=== PATIENT | male | born 1940 | race Caucasian/White ===

== ENCOUNTER 2020-02-10 15:43 | Inpatient (IN) ==
[2020-02-10] MEDS ORDERED: DILTIAZEM 25 MG/5 ML VIAL IV ONE ×2 (16:04→17:13)
--- NOTE | 2020-02-10 16:06 | Emergency Department Note ---
Arrhythmia/Palpitations HPI - General Chief Complaint: Arrhythmia/Palpitations Stated Complaint: DONN Mcadams, Time Seen by Provider: 02/10/20 15:55 Source: patient Mode of arrival: ambulatory Limitations: no limitations - History of Present Illness HPI Narrative: This patient has been short of breath for couple weeks and today was found to be in atrial fib RVR in his primary care doctor's office. He was sent over to the emergency room. He also has had some dependent edema recently which is improved by morning. No chest pain. Has never had atrial fib before. - Related Data Previous Rx's Medication Instructions Recorded aspirin 81 mg tablet,delayed 81 mg PO QDAY #90 tab 09/17/17 release cholecalciferol (vitamin D3) 25 1,000 unit PO QDAY #90 cap 06/10/18 mcg (1,000 unit) capsule diclofenac sodium 1 % topical gel 4 g TOPICAL QID #100 g 07/19/19 losartan 50 mg tablet 50 mg PO QDAY #90 tab 09/29/19 tadalafil 5 mg tablet 5 mg PO QDAY #90 tab 11/08/19 simvastatin 20 mg tablet 20 mg PO QPM #90 tab 01/09/20 lansoprazole 30 mg capsule,delayed 30 mg PO QDAY #90 cap 01/10/20 release amlodipine 5 mg tablet 5 mg PO QDAY #90 tab 02/01/20 famotidine 40 mg tablet 40 mg PO QDAY #90 tab 02/02/20 metformin 500 mg tablet 500 mg PO BID #180 tab 02/07/20 tamsulosin 0.4 mg capsule 0.4 mg PO QDAY #90 cap 02/09/20 Allergies Allergy/AdvReac Type Severity Reaction Status Date / Time No Known Drug Allergies Allergy Verified 02/10/20 14:39 Review of Systems All systems ED: reviewed and negative except as stated. Past Medical History - Past Medical History [facility] Narrative: Medical History (Last Updated 03/10/19 @ 09:40 by Roopa Baker CMA) Obesity (BMI 30.0-34.9) (Chronic) Epistaxis, recurrent (Chronic) Hypertension, essential (Chronic) Hyperlipemia (Chronic) Asthma (Chronic) Erectile dysfunction (Chronic 04/09/15) Gastroesophageal reflux (Chronic) Sweeney's esophagus (Chronic) Osteoarthritis (Chronic) History of colon polyps (Chronic) Benign localized hyperplasia of prostate without urinary obstruction (Chronic) Exophthalmos (Chronic) Diverticulosis of colon (Chronic) Tinnitus (Chronic) Kim's palsy (Resolved) Colon polyps (Resolved 02/07/15) Encounter for removal of nasal pack (Resolved) Epistaxis (Resolved) Finger pain (Resolved 04/09/15) Fracture, scapula closed (Resolved) Diabetes mellitus, type II (Inactive) Past Surgical History (Last Updated 02/20/19 @ 08:31 by Misael Forrest DO) History of hip replacement (Acute) History of hip surgery (Acute) History of inguinal hernia repair (Acute) History of orchiectomy (Acute) History of repair of left rotator cuff (Acute) S/P carpal tunnel release (Acute) Family History Mother Alzheimer's disease Father Malignant neoplasm of colon Disorder of pancreas Unknown Asthma Parkinson's Disease Medical history: Reports: CAD (coronary artery disease), DM, GERD, hyperlipid emia, hypertension, myocardial infarction (old silent small), obesity. Denies: CVA, TIA Surgical history ED: Reports: hip replacement, orthopedic, other (rotator cuff, carpal tunnel) - Social History smoking status: Never smoker Alcohol use: Reports: Occasionally (To beer 2 or 3 times a week) Drug use: Reports: none. Denies: marijuana Physical Exam Limitations: no limitations General appearance: alert Head: atraumatic Eye: Present: normal appearance ENT: Present: normal exam Neck: Present: normal inspection Chest: Present: normal inspection Respiratory: Present: normal lung sounds bilaterally Cardiovascular: Present: tachycardia, irregular rhythm, normal heart sounds Abdominal: Present: soft. Absent: distention, tenderness Extremities: Present: pedal edema, pretibial edema Neurological: Present: alert Psychiatric: Present: normal affect Skin: Present: warm, dry Course Vital Signs Temperature 97.8 F 02/10/20 15:44 Pulse Rate 145 H 02/10/20 15:44 Respiratory Rate 16 02/10/20 15:44 Blood Pressure 150/99 02/10/20 15:44 Pulse Oximetry (%) 99 02/10/20 15:44 Temperature 97.8 F 02/10/20 15:44 Pulse Rate 96 H 02/10/20 20:58 Respiratory Rate 23 H 02/10/20 20:58 Blood Pressure 125/91 02/10/20 20:31 Pulse Oximetry (%) 94 02/10/20 20:58 Arrhythmia/Palpitations - [facility] Narrative Medical decision making narrative: EKG showed atrial fib RVR rate of about 1 40-1 45. He was treated with diltiazem and Lopressor a feeling of his heart rate down close to 100. Chest x- ray shows evidence of heart failure and his BNP is elevated. I discussed the case with the hospitalist service and he will be admitted to the hospital. - Lab Data Lab results reviewed: Yes I reviewed the patient's lab results. Result diagrams: 02/10/20 16:07 02/10/20 16:07 Lab Results 02/10/20 02/10/20 02/10/20 Range/Units 16:07 16:07 16:07 WBC 15.3 H (4.50-11.00) K/mcL RBC 4.31 L (4.63-6.08) M/mcL Hgb 11.8 L (13.7-17.5) g/dL Hct 36.3 L (40.1-51.0) % MCV 84.2 (80.0-100.0) fL MCH 27.4 (26.0-34.0) pg MCHC 32.5 (31.0-36.0) g/dL RDW 14.6 H (11.5-14.5) % Plt Count 332 (140-440) K/mcL MPV 10.2 (7.4-10.4) fL Gran % 76.2 (38.0-78.0) % Lymph % (Auto) 6.7 L (15.5-49.0) % Jack % (Auto) 15.9 H (1.0-12.0) % Eos % (Auto) 0.7 (0.0-7.0) % Baso % (Auto) 0.5 (0.0-2.0) % Gran # 11.68 H (1.80-8.00) K/mcL Lymph # (Auto) 1.03 L (1.50-4.80) K/mcL Jack # (Auto) 2.43 H (0.10-0.90) K/mcL Eos # (Auto) 0.10 (0.00-0.70) K/mcL Baso # (Auto) 0.07 (0.00-0.30) K/mcL Sodium 132 L (133-145) mmol/L Potassium 3.9 (3.3-5.1) mmol/L Chloride 97 (96-108) mmol/L Carbon Dioxide 24 (22-30) mmol/L Anion Gap 11.0 (8-16) BUN 13 (8-23) mg/dl Creatinine 1.0 (0.7-1.2) mg/dl GFR Calculation 72 Glucose 106 H (70-105) mg/dL Calcium 9.3 (8.6-10.4) mg/dl Total Bilirubin 1.5 H (0.0-1.0) mg/dL AST 22 (0-37) U/l ALT 25 (0-40) U/l Alkaline Phosphatase 154 H (39-117) U/L Troponin T < 0.01 (0-0.03) ng/ml NT-Pro-B Natriuret Pep 2089.0 H (0-450) pg/ml Total Protein 7.0 (5.9-8.4) gm/dL Albumin 3.6 (3.2-5.2) gm/dL Globulin 3.4 (2.2-3.7) gm/dL Albumin/Globulin Ratio 1.1 (1.0-2.3) - Radiology Data Radiology results reviewed: Yes I reviewed the patient's radiology results. Disposition Pt seen by BEHAVIORAL HEALTH ASSISTANT/PA only: No Clinical Impression: Atrial fibrillation with RVR, Congestive heart failure Disposition: Xfer As Inpt ([facility]) Condition: Good Referrals: Hammad Knowles MD [Primary Care Provider] - Time of Disposition: 21:00
[2020-02-10] MEDS ORDERED: DILTIAZEM 125 MG in DEXTROSE 5% IN WATER 100 ML IV SCH ×2 (16:15→20:37)
--- NOTE | 2020-02-10 16:37 | XRay Report ---
INDICATION: sob TECHNIQUE: AP portable semiupright chest x-ray COMPARISON: None FINDINGS: Lungs:Lungs are negative. No focal pulmonary parenchymal infiltrate or mass Heart, vascular:Marked cardiomegaly. This is increased since 08/10/2017. Pulmonary vascularity is mildly prominent. There is peribronchial thickening and probable interstitial edema. Appearance is consistent with mild congestive heart failure. Mediastinum, patrice:No mediastinal widening. No hilar mass Pleura:No pleural fluid. No pleural-based mass or calcification Skeletal:Negative. IMPRESSION: 1. Marked cardiomegaly, increased since 08/10/2017 2. Probable mild interstitial edema consistent with congestive heart failure 3. No focal pulmonary parenchymal consolidation Interpreted and Authenticated by: Daryl Oro 02/10/20
[2020-02-10 16:42] LABS: Basophils # (Auto) 0.07 K/mcL (0.00-0.30); Basophils % (Auto) 0.5 % (0.0-2.0); Eosinophils % (Auto) 0.7 % (0.0-7.0); Granulocytes % (Auto) 76.2 % (38.0-78.0); Hematocrit 36.3 % (40.1-51.0); Hemoglobin 11.8 g/dL (13.7-17.5); Lymphocytes # (Auto) 1.03 K/mcL (1.50-4.80); Lymphocytes % (Auto) 6.7 % (15.5-49.0); Mean Cell Volume 84.2 fL (80.0-100.0); Mean Corpuscular HGB Conc 32.5 g/dL (31.0-36.0); Mean Platelet Volume 10.2 fL (7.4-10.4); Monocytes # (Auto) 2.43 K/mcL (0.10-0.90); Monocytes % (Auto) 15.9 % (1.0-12.0); Platelet Count 332 K/mcL (140-440); RBC 4.31 M/mcL (4.63-6.08); Red Cell Distribution Width 14.6 % (11.5-14.5); WBC 15.3 K/mcL (4.50-11.00)
[2020-02-10 17:02] LABS: ALT/SGPT 25 U/l (0-40); AST/SGOT 22 U/l (0-37); Albumin 3.6 gm/dL (3.2-5.2); Albumin/Globulin Ratio 1.1 (1.0-2.3); Alkaline Phosphatase 154 U/L (39-117); Bilirubin,Total 1.5 mg/dL (0.0-1.0); Blood Urea Nitrogen 13 mg/dl (8-23); Calcium 9.3 mg/dl (8.6-10.4); Carbon Dioxide 24 mmol/L (22-30); Chloride 97 mmol/L (96-108); Globulin 3.4 gm/dL (2.2-3.7); Glomerular Filtration Rate 72; Glucose 106 mg/dL (70-105)
[2020-02-10] MEDS ORDERED: FUROSEMIDE 40 MG/4 ML VIAL IV ONE (17:27)
[2020-02-10] MEDS ORDERED: METOPROLOL TARTRATE 5 MG/5 ML VIAL IV ONE (18:10)
[2020-02-10] MEDS ORDERED: DEXTROSE 31 GM ORAL.SUSP PO PRN ×2 (20:22→21:25)
[2020-02-10] MEDS ORDERED: DEXTROSE 50% 50 ML VIAL IV PRN ×2 (20:22→21:25)
[2020-02-10] MEDS ORDERED: LACTULOSE 20 GM/30 ML ORAL.SOL PO PRN ×2 (20:22→21:25)
--- NOTE | 2020-02-10 20:50 | Internal Med History&Physical ---
Medical - H&P: [facility] Patient information: Note initiated : 02/10/20 at 8:43 pm Service Date, if different from initiated Date: [] Patient: Emeetrio Medeiros 79 y/o M admitted on for DONN Mcadams,. Chief Complaint: [Atrial fibrillation] History of present illness: Mr. Medeiros is a 79 year old M with a history of high blood pressure and Sweeney's esophagus who was sent to the ER primary care physician due to atrial fibrillation with RVR. Patient states that he has been having shortness of breath associated with mild dry cough over the past 2 months. He went to his PCPs office today over there he was found to have atrial fibrillation with RVR. In the ER, he was also found to have elevation of BNP. She was given Lasix 40 mg and diltiazem. When I saw this patient in the ER, he felt much better. Denied headache, dizziness, chest pain, nausea, vomiting, abdominal pain, or dysuria. Denies history of diabetes, CHF atrial fibrillation. Review of systems: Positive for shortness of breath and cough all other systems were reviewed and are negative. Medical - H&P: [facility] Medical history: High blood pressure and GERD Family history: reviewed and not pertinent (Father colon cancer; mother dementia) Smoking status: Never smoker Have you smoked in the last 12 months: No Drug use: none Alcohol use: none Medical - H&P: Meds Home Medications Medication Instructions Recorded Confirmed Type aspirin 81 mg tablet,delayed 81 mg PO QDAY #90 tab 09/17/17 02/10/20 Rx release cholecalciferol (vitamin D3) 25 1,000 unit PO QDAY #90 cap 06/10/18 02/10/20 Rx mcg (1,000 unit) capsule diclofenac sodium 1 % topical gel 4 g TOPICAL QID #100 g 07/19/19 02/10/20 Rx losartan 50 mg tablet 50 mg PO QDAY #90 tab 09/29/19 02/10/20 Rx tadalafil 5 mg tablet 5 mg PO QDAY #90 tab 11/08/19 02/10/20 Rx simvastatin 20 mg tablet 20 mg PO QPM #90 tab 01/09/20 02/10/20 Rx lansoprazole 30 mg capsule,delayed 30 mg PO QDAY #90 cap 01/10/20 02/10/20 Rx release amlodipine 5 mg tablet 5 mg PO QDAY #90 tab 02/01/20 02/10/20 Rx famotidine 40 mg tablet 40 mg PO QDAY #90 tab 02/02/20 02/10/20 Rx metformin 500 mg tablet 500 mg PO BID #180 tab 02/07/20 02/10/20 Rx tamsulosin 0.4 mg capsule 0.4 mg PO QDAY #90 cap 02/09/20 02/10/20 Rx Allergies Allergy/AdvReac Type Severity Reaction Status Date / Time No Known Drug Allergies Allergy Verified 02/10/20 14:39 Medical - H&P: Exam - Constitutional Vitals: Temp Pulse Resp BP Pulse Ox 97.8 F 77 27 H 124/111 95 02/10/20 15:44 02/10/20 19:16 02/10/20 20:01 02/10/20 20:01 02/10/20 19:16 - Other Additional findings: General - No acute distress Eyes - PERRLA, EOM intact ENT no rhinorrhea, no noticeable or palpable swelling, no redness or rash around throat or on face Neck supple, no JVD, no thyromegaly Respiratory: Lungs -clear, no wheezing or crackles. Cardiovascular - RRR no m/r/g, GI - Normal bowel sounds, no distended, soft. Extremeties - No edema, cyanosis or clubbing Hemo/lymphatic/immune no lymphadenopathy Neurological Alert and oriented x 3, no focal neurological deficits. Psychiatry flat affect Medical - H&P: Reslt - Labs CBC & Chem 7: 02/10/20 16:07 02/10/20 16:07 Labs: Short CBC 02/10/20 Range/Units 16:07 WBC 15.3 H (4.50-11.00) K/mcL Hgb 11.8 L (13.7-17.5) g/dL Hct 36.3 L (40.1-51.0) % Plt Count 332 (140-440) K/mcL BMP 02/10/20 16:07 Sodium 132 L Potassium 3.9 Chloride 97 Carbon Dioxide 24 BUN 13 Creatinine 1.0 Glucose 106 H Calcium 9.3 Cardiac Enzymes 02/10/20 Range/Units 16:07 Troponin T < 0.01 (0-0.03) ng/ml Liver Function 02/10/20 Range/Units 16:07 Total Bilirubin 1.5 H (0.0-1.0) mg/dL AST 22 (0-37) U/l ALT 25 (0-40) U/l Alkaline Phosphatase 154 H (39-117) U/L Albumin 3.6 (3.2-5.2) gm/dL Medical - H&P: A/P - Narrative A/P Narrative: Assessment: 1.Possible systolic CHF exacerbation 2. Atrial fibrillation with RVR, new 3. Leukocytosis 4. Hyponatremia 5. DM 6. Sweeney's esophagus 7. HTN Plan: 1. In the ER, BNP 2088. CXR showed Marked cardiomegaly, increased since 08/10/2017 Patient denies history of CHF Troponin negative, repeat troponin Patient has a high blood pressure Intake and output Daily weight Lasix 40 mg was given Lasix 40 mg IV twice daily Continue losartan 50 mg daily Check TSH electrolytes 2. EKG showed atrial fibrillation with RVR Patient denies history of atrial fibrillation In the ER, diltiazem drip was started, continue diltiazem drip as needed Added metoprolol 12.5 mg twice daily TSH 3. WBC increased. No evidence of infection Repeat CBC in the morning 4. Repeat the sodium in morning 5. Patient denies history of diabetes Diabetic diet, insulin sliding scale Metformin on hold Hba1c 6. Continue famotidine and lansoprazole 7. Continue losartan, diltiazem, and metoprolol. Amlodipine is on hold Monitor blood pressure 8. DVT prophylaxis: Lovenox 9. CODE STATUS: Full
[2020-02-10] MEDS ORDERED: ATORVASTATIN 20 MG TABLET PO SCH (21:00)
[2020-02-10] MEDS ORDERED: DOCUSATE SODIUM 100 MG CAPSULE PO SCH (21:00)
[2020-02-10] MEDS ORDERED: METOPROLOL TARTRATE 25 MG TABLET PO SCH (21:00)
[2020-02-10] MEDS ORDERED: SIMVASTATIN 20 MG TABLET PO SCH (21:00)
[2020-02-10] MEDS ORDERED: INSULIN LISPRO 1 UNIT/0.01 ML UNIT SQ SCH (21:00)
--- NOTE | 2020-02-10 21:05 | Event Note ---
Advanced Care Planning Documents: Parties in Attendance: Patient Decisional Capacity: Yes POLST form completed: Not I explained the process regarding CPR, defibrillation, shock, and intubation to the patient. He agreed with CPR and intubation.
[2020-02-10] MEDS ORDERED: METOPROLOL TARTRATE 25 MG TABLET PO ONE (21:41)
[2020-02-10] MEDS ORDERED: 0.9 % SODIUM CHLORIDE 10 ML SYRINGE IV SCH (22:00)
[2020-02-10 22:16] LABS: Appearance,Urine CLEAR; Bilirubin,Urine NEG (NEG); Color,Urine STRAW; Culture Indicated,Urine NO; Glucose,Urine (UA) NEGATIVE (NEG); Ketones,Urine NEG (NEG); Leukocyte Esterase,Urine NEG /uL (NEG); Nitrate,Urine NEG (NEG); Protein,Urine NEG (NEG); Specific Gravity,Urine 1.008 (1.000-1.035); Urine Blood NEG mg/dL (<0.03); Urobilinogen,Urine NEG (NEG)
[2020-02-10] MEDS: 0.9 % SODIUM CHLORIDE 10 ML SYRINGE IV SCH (22:27)
[2020-02-10] MEDS: MELATONIN 3 MG TABLET PO PRN (22:27)
[2020-02-10] MEDS: ATORVASTATIN 20 MG TABLET PO SCH (22:27)
[2020-02-10 22:34] LABS: ALT/SGPT 23 U/l (0-40); AST/SGOT 21 U/l (0-37); Albumin/Globulin Ratio 1.1 (1.0-2.3); Alkaline Phosphatase 155 U/L (39-117); Bilirubin,Total 1.8 mg/dL (0.0-1.0); Blood Urea Nitrogen 13 mg/dl (8-23); Calcium 9.6 mg/dl (8.6-10.4); Carbon Dioxide 26 mmol/L (22-30); Globulin 3.6 gm/dL (2.2-3.7); Glomerular Filtration Rate 72; Glucose 120 mg/dL (70-105)
[2020-02-10 22:39] LABS: Chloride 94 mmol/L (96-108)
[2020-02-10 23:00] LABS: Estimated Average Glucose(eAG) 134 mg/dL; Hemoglobin A1C 6.3 % HGB (4.0-6.0)
[2020-02-11] MEDS ORDERED: DILTIAZEM 125 MG/25 ML VIAL IV ONE (00:20)
[2020-02-11] MEDS: DILTIAZEM 125 MG in DEXTROSE 5% IN WATER 100 ML IV SCH ×2 (00:30→11:58)
[2020-02-11] MEDS: 0.9 % SODIUM CHLORIDE 10 ML SYRINGE IV SCH ×3 (05:13→21:02)
[2020-02-11 06:50] LABS: Basophils # (Auto) 0.05 K/mcL (0.00-0.30); Basophils % (Auto) 0.4 % (0.0-2.0); Eosinophils # (Auto) 0.05 K/mcL (0.00-0.70); Eosinophils % (Auto) 0.4 % (0.0-7.0); Granulocytes % (Auto) 78.1 % (38.0-78.0); Hematocrit 33.3 % (40.1-51.0); Hemoglobin 10.9 g/dL (13.7-17.5); Lymphocytes # (Auto) 0.93 K/mcL (1.50-4.80); Lymphocytes % (Auto) 6.8 % (15.5-49.0); Mean Cell Volume 83.9 fL (80.0-100.0); Mean Corpuscular HGB Conc 32.7 g/dL (31.0-36.0); Mean Platelet Volume 10.2 fL (7.4-10.4); Monocytes # (Auto) 1.96 K/mcL (0.10-0.90); Monocytes % (Auto) 14.3 % (1.0-12.0); Platelet Count 330 K/mcL (140-440); RBC 3.97 M/mcL (4.63-6.08); Red Cell Distribution Width 14.6 % (11.5-14.5); WBC 13.8 K/mcL (4.50-11.00)
[2020-02-11 07:14] LABS: ALT/SGPT 22 U/l (0-40); AST/SGOT 17 U/l (0-37); Albumin 3.7 gm/dL (3.2-5.2); Albumin/Globulin Ratio 1.3 (1.0-2.3); Alkaline Phosphatase 132 U/L (39-117); Bilirubin,Total 1.8 mg/dL (0.0-1.0); Blood Urea Nitrogen 15 mg/dl (8-23); Calcium 8.8 mg/dl (8.6-10.4); Carbon Dioxide 25 mmol/L (22-30); Globulin 2.8 gm/dL (2.2-3.7); Glomerular Filtration Rate 72; Glucose 111 mg/dL (70-105)
[2020-02-11 07:17] LABS: Phosphorous 3.6 mg/dL (2.7-4.5); Thyroid Stimulating Hormone 1.49 uIU/ml (0.27-5.01)
[2020-02-11 07:21] LABS: Chloride 95 mmol/L (96-108)
[2020-02-11] MEDS: INSULIN LISPRO 1 UNIT/0.01 ML UNIT SQ SCH ×4 (07:37→21:01)
[2020-02-11] MEDS ORDERED: FUROSEMIDE 40 MG/4 ML VIAL IV SCH (08:00)
[2020-02-11] MEDS ORDERED: NON FORMULARY MEDICATION 1 DOSE MISCELL (Aspirin [Lo-Dose Aspirin Ec] 81 MG) PO SCH (09:00)
[2020-02-11] MEDS ORDERED: LOSARTAN 50 MG TABLET PO SCH (09:00)
[2020-02-11] MEDS ORDERED: METOPROLOL TARTRATE 25 MG TABLET PO SCH (09:00)
[2020-02-11] MEDS ORDERED: TAMSULOSIN 0.4 MG CAPSULE PO SCH (09:00)
[2020-02-11] MEDS ORDERED: FAMOTIDINE 40 MG PO SCH ×2 (09:00)
[2020-02-11] MEDS ORDERED: NON FORMULARY MEDICATION 1 DOSE MISCELL (Cholecalciferol (Vitamin D3) [Vitamin D3] 1,000 U PO SCH (09:00)
[2020-02-11] MEDS ORDERED: NON FORMULARY MEDICATION 1 DOSE MISCELL (Lansoprazole [Prevacid] 30 MG) PO SCH ×2 (09:00)
[2020-02-11] MEDS ORDERED: ENOXAPARIN 40 MG/0.4 ML SYRINGE SQ SCH (09:00)
[2020-02-11] MEDS: FUROSEMIDE 40 MG/4 ML VIAL IV SCH ×2 (09:26→15:41)
[2020-02-11] MEDS: METOPROLOL TARTRATE 25 MG TABLET PO SCH ×2 (09:26→21:01)
[2020-02-11] MEDS: VITAMIN D3 1,000 UNIT TABLET PO SCH (09:26)
[2020-02-11] MEDS: ASPIRIN 81 MG TAB.CHEW PO SCH (09:27)
[2020-02-11] MEDS: TAMSULOSIN 0.4 MG CAPSULE PO SCH (09:27)
[2020-02-11] MEDS: ENOXAPARIN 40 MG/0.4 ML SYRINGE SQ SCH (09:27)
[2020-02-11] MEDS: LOSARTAN 50 MG TABLET PO SCH (09:27)
[2020-02-11] MEDS: DOCUSATE SODIUM 100 MG CAPSULE PO SCH ×2 (09:27→21:01)
[2020-02-11] MEDS: PANTOPRAZOLE 40 MG TABLET PO SCH (10:52)
[2020-02-11] MEDS: FAMOTIDINE 20 MG TABLET PO SCH (10:52)
--- NOTE | 2020-02-11 11:23 | Internal Med Progress Note ---
Medical - PN: Subj Patient information: Note initiated : 02/11/20 at 11:18 am Service Date, if different from initiated Date: [] Patient: Emeterio Medieros a 79 y/o M admitted on 02/10/20 for DONN Mcadams,. Chief Complaint: [] Interval history: Mr. Medeiros is a 79 year old M with a history of high blood pressure and Sweeney's esophagus who was sent to the ER primary care physician due to atrial fibrillation with RVR. Patient states that he has been having shortness of breath associated with mild dry cough over the past 2 months. He went to his PCPs office today over there he was found to have atrial fibrillation with RVR. In the ER, he was also found to have elevation of BNP. She was given Lasix 40 mg and diltiazem. When I saw this patient in the ER, he felt much better. Denied headache, dizziness, chest pain, nausea, vomiting, abdominal pain, or dysuria. Denies history of diabetes, CHF atrial fibrillation. 02/10 Pt feels great. Denies headache, dizziness, palpitation, nausea, or vomiting. He wants to go home today. Heart rate is controlled. K, Mag and phos WNL He is still on diltiazem drip, trying to wean off. Increase metoprolol to 25 mg twice daily Review of systems: Positive for shortness of breath and cough all other systems were reviewed and are negative. - Constitutional Vitals: Vital Signs Temp Pulse Resp BP Pulse Ox 97.9 F 24 L 25 H 115/93 96 02/11/20 04:01 02/11/20 07:03 02/11/20 07:03 02/11/20 07:03 02/11/20 07:03 Period Temp Pulse Resp BP Sys/Gold Pulse Ox Last 24 Hr 97.8 F-98.8 F 20-145 15-30 103-150/61-111 92-100 Intake and Output 02/10/20 02/11/20 02/11/20 21:59 05:59 13:59 Intake Total 50 118 179 Output Total 400 Balance 50 -282 179 Weight 114.623 kg Intake & Output: Intake & Output 02/10/20 02/11/20 02/11/20 21:59 05:59 13:59 Intake Total 50 118 179 Output Total 400 Balance 50 -282 179 Weight 114.623 kg Intake: IV 50 118 59 Cardizem 125 mg In Dextrose 5% 50 118 59 in Water 100 ml @ 5 MG/HR 5 mls /hr IV Q12H [facility] Rx#:[id number] Oral 120 Output: Void Amount 400 Other: Meal Breakfast Percent of Meal Consumed 100% Urine Appearance Clear Urine Color Dark Yellow - Additional findings Additional findings: General - No acute distress Eyes - PERRLA, EOM intact ENT no rhinorrhea, no noticeable or palpable swelling, no redness or rash around throat or on face Neck supple, no JVD, no thyromegaly Respiratory: Lungs -clear, no wheezing or crackles. Cardiovascular - RRR no m/r/g, GI - Normal bowel sounds, no distended, soft. Extremeties - No edema, cyanosis or clubbing Hemo/lymphatic/immune no lymphadenopathy Neurological Alert and oriented x 3, no focal neurological deficits. Psychiatry flat affect Medical - PN: Obj Da - Labs CBC & Chem 7: 02/11/20 04:17 02/11/20 04:17 Labs: Abnormal Lab Results 02/11/20 02/11/20 02/10/20 04:17 04:17 20:45 WBC 13.8 H RBC 3.97 L Hgb 10.9 L Hct 33.3 L RDW 14.6 H Gran % 78.1 H Lymph % (Auto) 6.8 L Douglas % (Auto) 14.3 H Gran # 10.76 H Lymph # (Auto) 0.93 L Douglas # (Auto) 1.96 H Sodium 132 L Chloride 95 L 94 L Glucose 111 H 120 H Hemoglobin A1c 6.3 H Total Bilirubin 1.8 H 1.8 H Alkaline Phosphatase 132 H 155 H NT-Pro-B Natriuret Pep 02/10/20 02/10/20 16:07 16:07 WBC 15.3 H RBC 4.31 L Hgb 11.8 L Hct 36.3 L RDW 14.6 H Gran % Lymph % (Auto) 6.7 L Douglas % (Auto) 15.9 H Gran # 11.68 H Lymph # (Auto) 1.03 L Douglas # (Auto) 2.43 H Sodium 132 L Chloride Glucose 106 H Hemoglobin A1c Total Bilirubin 1.5 H Alkaline Phosphatase 154 H NT-Pro-B Natriuret Pep 2089.0 H Meds: Medications Aspirin (Aspirin) 81 mg PO DAILY [facility] Last Admin: 02/11/20 09:27 Dose: 81 mg Documented by: Atorvastatin Calcium (Lipitor) 20 mg PO HS [facility] Last Admin: 02/10/20 22:27 Dose: 20 mg Documented by: Dextrose (Dextrose 50%) 0 ml IV UD PRN PRN Reason: Hypoglycemia Diagnostic Test (Pha) (Accu-Chek) 1 each FS ACHS [facility] Last Admin: 02/11/20 07:37 Dose: 1 each Documented by: Docusate Sodium (Colace) 100 mg PO BID [facility] Last Admin: 02/11/20 09:27 Dose: 100 mg Documented by: Enoxaparin Sodium (Lovenox) 40 mg SQ DAILY [facility] Last Admin: 02/11/20 09:27 Dose: 40 mg Documented by: Famotidine (Pepcid) 40 mg PO QDAY [facility] Last Admin: 02/11/20 10:52 Dose: 40 mg Documented by: Furosemide (Lasix) 40 mg IV BIDD [facility] Last Admin: 02/11/20 09:26 Dose: 40 mg Documented by: Glucose (Insta-Glucose) 15 gm PO PRN PRN PRN Reason: Hypoglycemia Diltiazem HCl 125 mg/ Dextrose 125 mls @ 5 mls/hr IV Q12H [facility]; Protocol Last Titration: 02/11/20 09:28 Dose: 8 mg/hr, 8 mls/hr Documented by: Insulin Human Lispro (Humalog) 0 unit SQ [facility]; Protocol Last Admin: 02/11/20 07:37 Dose: Not Given Documented by: Lactulose (Cephulac) 10 gm PO DAILYP PRN PRN Reason: Constipation Losartan Potassium (Cozaar) 50 mg PO QDAY [facility] Last Admin: 02/11/20 09:27 Dose: 50 mg Documented by: Melatonin (Melatonin 3mg Tablet) 6 mg PO HSP PRN PRN Reason: Insomnia Last Admin: 02/10/20 22:27 Dose: 6 mg Documented by: Metoprolol Tartrate (Lopressor) 25 mg PO BID [facility] Last Admin: 02/11/20 09:26 Dose: 25 mg Documented by: Pantoprazole Sodium (Protonix) 40 mg PO QAMAC [facility] Last Admin: 02/11/20 10:52 Dose: 40 mg Documented by: Sodium Chloride (Saline Flush) 10 ml IV Q8 [facility] Last Admin: 02/11/20 05:13 Dose: Not Given Documented by: Tamsulosin HCl (Flomax) 0.4 mg PO QDAY [facility] Last Admin: 02/11/20 09:27 Dose: 0.4 mg Documented by: Vitamin D (Vitamin D3) 1,000 unit PO DAILY [facility] Last Admin: 02/11/20 09:26 Dose: 1,000 unit Documented by: Medical - PN: A/P - Time Spent With Patient Total time spent is greater than 50% in coordination of care (as documented) at patient's floor/unit and/or counseling patient: - Narrative A/P Narrative: Assessment: 1.Possible systolic CHF exacerbation 2. Atrial fibrillation with RVR, new 3. Leukocytosis 4. Hyponatremia 5. DM 6. Sweeney's esophagus 7. HTN Plan: 1. In the ER, BNP 2088. CXR showed Marked cardiomegaly, increased since 08/10/2017 Patient denies history of CHF Troponin negative x 2 Patient has a high blood pressure Intake and output Daily weight Lasix 40 mg was given Lasix 40 mg IV twice daily Continue losartan 50 mg daily TSH 1.49 K, Mag and phos WNL 2. EKG showed atrial fibrillation with RVR Patient denies history of atrial fibrillation Rate is controlled He is still on diltiazem drip, trying to wean off. Increase metoprolol to 25 mg twice daily Discussed with patient about anticoagulation. He would like to let his PCP and labeling machine operator to deal with the issue. He does not want to start anticoagulation now. 3. WBC trending down. No evidence of infection Repeat CBC in the morning 4. Na 125 today Repeat the sodium in morning 5. Patient denies history of diabetes Hba1c 6.3 Diabetic diet, insulin sliding scale Metformin on hold 6. Continue famotidine and lansoprazole 7. Continue losartan, diltiazem, and metoprolol. Amlodipine is on hold Monitor blood pressure 8. DVT prophylaxis: Lovenox 9. CODE STATUS: Full
[2020-02-11] MEDS ORDERED: DILTIAZEM 125 MG in DEXTROSE 5% IN WATER 100 ML IV PRN (13:15)
[2020-02-11] MEDS ORDERED: ATORVASTATIN 20 MG TABLET PO SCH (21:00)
[2020-02-11] MEDS: MELATONIN 3 MG TABLET PO PRN (21:01)
[2020-02-11] MEDS: ATORVASTATIN 20 MG TABLET PO SCH (21:01)
[2020-02-12 05:08] LABS: Basophils # (Auto) 0.06 K/mcL (0.00-0.30); Basophils % (Auto) 0.5 % (0.0-2.0); Eosinophils # (Auto) 0.24 K/mcL (0.00-0.70); Eosinophils % (Auto) 1.8 % (0.0-7.0); Granulocytes % (Auto) 74.6 % (38.0-78.0); Hematocrit 33.9 % (40.1-51.0); Lymphocytes # (Auto) 1.07 K/mcL (1.50-4.80); Lymphocytes % (Auto) 8.1 % (15.5-49.0); Mean Cell Volume 83.5 fL (80.0-100.0); Mean Corpuscular HGB Conc 32.4 g/dL (31.0-36.0); Mean Platelet Volume 9.6 fL (7.4-10.4); Monocytes # (Auto) 1.99 K/mcL (0.10-0.90); Platelet Count 321 K/mcL (140-440); RBC 4.06 M/mcL (4.63-6.08); Red Cell Distribution Width 14.6 % (11.5-14.5); WBC 13.3 K/mcL (4.50-11.00)
[2020-02-12 05:30] LABS: ALT/SGPT 20 U/l (0-40); AST/SGOT 17 U/l (0-37); Albumin 3.4 gm/dL (3.2-5.2); Albumin/Globulin Ratio 1.1 (1.0-2.3); Alkaline Phosphatase 140 U/L (39-117); Bilirubin,Total 1.5 mg/dL (0.0-1.0); Blood Urea Nitrogen 18 mg/dl (8-23); Calcium 8.8 mg/dl (8.6-10.4); Carbon Dioxide 27 mmol/L (22-30); Chloride 94 mmol/L (96-108); Glomerular Filtration Rate 72; Glucose 115 mg/dL (70-105)
[2020-02-12] MEDS: 0.9 % SODIUM CHLORIDE 10 ML SYRINGE IV SCH (05:31)
[2020-02-12] MEDS: PANTOPRAZOLE 40 MG TABLET PO SCH (08:04)
[2020-02-12] MEDS: INSULIN LISPRO 1 UNIT/0.01 ML UNIT SQ SCH (08:24)
[2020-02-12] MEDS: FAMOTIDINE 20 MG TABLET PO SCH (08:54)
[2020-02-12] MEDS: METOPROLOL TARTRATE 25 MG TABLET PO SCH (08:54)
[2020-02-12] MEDS: TAMSULOSIN 0.4 MG CAPSULE PO SCH (08:54)
[2020-02-12] MEDS: LOSARTAN 50 MG TABLET PO SCH (08:54)
[2020-02-12] MEDS: VITAMIN D3 1,000 UNIT TABLET PO SCH (08:54)
[2020-02-12] MEDS: ENOXAPARIN 40 MG/0.4 ML SYRINGE SQ SCH (08:55)
[2020-02-12] MEDS: ASPIRIN 81 MG TAB.CHEW PO SCH (08:55)
[2020-02-12] MEDS: DOCUSATE SODIUM 100 MG CAPSULE PO SCH (08:55)
[2020-02-12] MEDS: FUROSEMIDE 40 MG/4 ML VIAL IV SCH (08:55)
--- NOTE | 2020-02-12 09:42 | Discharge Summary ---
Medical - DS: Prov Patient information: Note initiated : 02/12/20 at 9:30 am Service Date, if different from initiated Date: [] Patient: Emeterio Medeiros 79 y/o M admitted on 02/10/20 for DONN Mcadams,. Chief Complaint: [] Refer to H&P by Anju Michele M.D.> 02/10/20 Mr. Medeiros is a 79 year old M with a history of high blood pressure and Sweeney's esophagus who was sent to the ER primary care physician due to atrial fibrillation with RVR. Patient states that he has been having shortness of breath associated with mild dry cough over the past 2 months. He went to his PCPs office today over there he was found to have atrial fibrillation with RVR. In the ER, he was also found to have elevation of BNP. She was given Lasix 40 mg and diltiazem. When I saw this patient in the ER, he felt much better. Denied headache, dizziness, chest pain, nausea, vomiting, abdominal pain, or dysuria. Denies history of diabetes, CHF atrial fibrillation. Date of admission: 02/10/20 21:02 Discharge date: 02/12/20 Primary care physician: Hammad Knowles Consults: 02/10/20 Consult to Physician [CONS] Stat Comment: Consulting Provider: Anju Michele Reason For Exam: Physician to Consult Medical - DS: Meds - Discharge Medications Prescriptions: Insulin Lispro [Humalog] See Protocol SQ ACHS #5 unit Transmission Status: Pending to [facility] Furosemide [Lasix] 20 mg PO DAILY #15 tab Transmission Status: Pending to [facility] Atorvastatin [Lipitor] 20 mg PO HS #30 tab Transmission Status: Pending to [facility] Metoprolol Tartrate [Lopressor] 25 mg PO BID #60 tab Transmission Status: Pending to [facility] Potassium Chloride 10 meq PO DAILY #15 capsule.er Transmission Status: Pending to [facility] Active and Home Medications: Home Medications aspirin 81 mg tablet,delayed release 81 mg PO QDAY #90 tab 09/17/17 [Rx Confirmed 02/10/20 Last Taken 07/04/18] cholecalciferol (vitamin D3) 25 mcg (1,000 unit) capsule 1,000 unit PO QDAY #90 cap 06/10/18 [Rx Confirmed 02/10/20 Last Taken 07/04/18] diclofenac sodium 1 % topical gel 4 g TOPICAL QID #100 g 07/19/19 [Rx Confirmed 02/10/20 Last Taken Unknown] losartan 50 mg tablet 50 mg PO QDAY #90 tab 09/29/19 [Rx Confirmed 02/10/20 Last Taken Unknown] tadalafil 5 mg tablet 5 mg PO QDAY #90 tab 11/08/19 [Rx Confirmed 02/10/20 Last Taken Unknown] simvastatin 20 mg tablet 20 mg PO QPM #90 tab 01/09/20 [Rx Confirmed 02/10/20 Last Taken Unknown] lansoprazole 30 mg capsule,delayed release 30 mg PO QDAY #90 cap 01/10/20 [Rx Confirmed 02/10/20 Last Taken Unknown] amlodipine 5 mg tablet 5 mg PO QDAY #90 tab 02/01/20 [Rx Confirmed 02/10/20 Last Taken Unknown] famotidine 40 mg tablet 40 mg PO QDAY #90 tab 02/02/20 [Rx Confirmed 02/10/20 Last Taken Unknown] metformin 500 mg tablet 500 mg PO BID #180 tab 02/07/20 [Rx Confirmed 02/10/20 Last Taken Unknown] tamsulosin 0.4 mg capsule 0.4 mg PO QDAY #90 cap 02/09/20 [Rx Confirmed 02/10/20 Last Taken Unknown] Medical - DS: Hosp Hospital Course: 1.Possible systolic CHF exacerbation In the ER, BNP 2089. CXR showed Marked cardiomegaly, increased since 08/10/2017 Patient denies history of CHF Troponin negative x 2 Echo was performed, report pending. thanks Patient has a high blood pressure Intake and output Daily weight Discontinued Lasix 40 mg IV twice daily. He will be discharged on lasix 20mg po daily and KCl 10mEq daily. Continue losartan 50 mg daily TSH 1.49 K, Mag and phos WNL f/u with pcp and cardiology repeat electrolytes and renal function in one week. 2. Atrial fibrillation with RVR, new EKG showed atrial fibrillation with RVR Patient denies history of atrial fibrillation Rate is controlled diltiazem drip was off about 24hrs ago. continue metoprolol to 25 mg twice daily Discussed with patient about anticoagulation. He would like to let his PCP and terminal make up operator to deal with the issue. He does not want to start anticoagulation now. f/u with pcp and cardiology 3. Leukocytosis WBC trending down to 13.3. No evidence of infection Repeat CBC in 3 days 4. Hyponatremia, resolved 5. DM diabetic diet Hba1c 6.3 Diabetic diet, insulin sliding scale Metformin will be resumed 6. Hx of Sweeney's esophagus continue home meds f/u with pcp and GI 7. HTN continue amlodipine and metoprolol f/u with pcp and cardiology 02/10 Pt feels great. Denies headache, dizziness, palpitation, nausea, or vomiting. He wants to go home today. Heart rate is controlled. K, Mag and phos WNL He is still on diltiazem drip, trying to wean off. Increase metoprolol to 25 mg twice daily 02/11 Pt feels great. Denies any medical complaints. Water salts are stable. Patient would like to go home now. He promised to follow with PCP the terminal make up operator. He will be discharged home to follow-up with PCP, cardiology and GI. Repeat CBC 3 days, renal function and electrolytes in 1 week. Call PCP for medical issues. Discharge diagnosis: CHF and atril fibrillation. - Time Spent with Patient Total time spent providing and/or coordinating discharge services: Greater than 30 minutes Medical - DS: Exam - Constitutional Vitals: Vital Signs Temp Pulse Resp BP BP Pulse Ox 02/12/20 05:56 96 H 16 118/79 96 02/12/20 04:00 97.9 F 104 H 20 124/83 96 02/12/20 02:00 98.2 F 103 H 16 114/83 98 02/11/20 23:00 97.7 F 91 H 20 111/78 96 02/11/20 20:44 98.3 F 114 H 26 H 130/92 93 02/11/20 20:00 98 02/11/20 17:00 93 H 105/85 02/11/20 15:36 28 H 129/91 97 02/11/20 14:12 98.5 F 91 H 20 126/85 97 02/11/20 14:00 91 H 28 H 97 02/11/20 13:32 31 H 121/94 02/11/20 10:25 31 H 124/101 02/11/20 09:43 26 H 96/82 Intake and Output 02/11/20 02/12/20 02/12/20 21:59 05:59 13:59 Intake Total 120 Output Total 650 550 Balance -530 -550 Intake: Oral 120 Output: Void Amount 650 550 Other: Meal Dinner Percent of Meal Consumed 50% Urine Appearance Clear Clear Urine Color Bright Yellow Dark Yellow # Voids 1 Weight 119.386 kg - Other Additional findings: General - No acute distress Eyes - PERRLA, EOM intact ENT no rhinorrhea, no noticeable or palpable swelling, no redness or rash around throat or on face Neck supple, no JVD, no thyromegaly Respiratory: Lungs -clear, no wheezing or crackles. Cardiovascular - irregular irregular, no m/r/g, GI - Normal bowel sounds, no distended, soft. Extremeties - No edema, cyanosis or clubbing Hemo/lymphatic/immune no lymphadenopathy Neurological Alert and oriented x 3, no focal neurological deficits. Psychiatry flat affect Medical - DS: Data Labs on day of discharge: Labs from last 24 hours 02/12/20 02/12/20 04:26 04:26 WBC 13.3 H RBC 4.06 L Hgb 11.0 L Hct 33.9 L MCV 83.5 MCH 27.1 MCHC 32.4 RDW 14.6 H Plt Count 321 MPV 9.6 Gran % 74.6 Lymph % (Auto) 8.1 L [place] % (Auto) 15.0 H Eos % (Auto) 1.8 Baso % (Auto) 0.5 Gran # 9.92 H Lymph # (Auto) 1.07 L [place] # (Auto) 1.99 H Eos # (Auto) 0.24 Baso # (Auto) 0.06 Sodium 133 Potassium 3.7 Chloride 94 L Carbon Dioxide 27 Anion Gap 12.0 BUN 18 Creatinine 1.0 GFR Calculation 72 Glucose 115 H Calcium 8.8 Total Bilirubin 1.5 H AST 17 ALT 20 Alkaline Phosphatase 140 H Total Protein 6.4 Albumin 3.4 Globulin 3.0 Albumin/Globulin Ratio 1.1 Medical - DS: A/P - Patient/Caregiver Discharge Instructions Activity: increase activity as tolerated Diet: Consistent Carbohydrate - Follow up Plan Follow up with: Hammad Knowles MD [Primary Care Provider] - Disposition: Home, Self-Care Prognosis: Good Rehab Potential: Good
== END 2020-02-12 10:25 | disposition home or self-care (01) | DRG 291 ==
LOC: ICU 15:43 → ED 15:43 → ICU 19:29 → OBSVTOIN 21:02 → ICU 21:20
PROVIDERS: ADMIT Internal Medicine; ATTEND Internal Medicine

== ENCOUNTER 2023-11-11 20:42 | Inpatient (IN) ==
[2023-11-11] MEDS ORDERED: 0.9 % SODIUM CHLORIDE 1,000 ML IV ONE (21:06)
[2023-11-11 22:04] LABS: ALT/SGPT 7 U/L (<40); AST/SGOT 9 U/L (<40); Albumin/Globulin Ratio 1.4 (1.0-2.3); Alkaline Phosphatase 126 U/L (39-117); Bilirubin,Total 0.4 mg/dL (0.1-1.0); Blood Urea Nitrogen 102 mg/dL (8-23); Calcium 9.5 mg/dL (8.6-10.4); Carbon Dioxide 11 mmol/L (22-30); Chloride 102 mmol/L (96-108); Globulin 2.9 gm/dL (2.2-3.7); Glomerular Filtration Rate 6; Glucose 104 mg/dL (70-105)
[2023-11-11 22:08] LABS: Basophils # (Auto) 0.06 K/mcL (0.00-0.30); Basophils % (Auto) 0.8 % (0.0-2.0); Eosinophils % (Auto) 2.6 % (0.0-7.0); Hematocrit 34.9 % (40.1-51.0); Hemoglobin 11.1 g/dL (13.7-17.5); Lymphocytes # (Auto) 1.44 K/mcL (1.50-4.80); Lymphocytes % (Auto) 18.6 % (15.5-49.0); Mean Corpuscular HGB Conc 31.8 g/dL (31.0-36.0); Mean Platelet Volume 10.8 fL (8.8-12.5); Monocytes # (Auto) 1.19 K/mcL (0.10-0.90); Monocytes % (Auto) 15.4 % (1.0-12.0); Neutrophils % (Auto) 62.3 % (38.0-78.0); Platelet Count 214 K/mcL (140-440); RBC 4.06 M/mcL (4.63-6.08); Red Cell Distribution Width 14.8 % (11.5-14.5); WBC 7.7 K/mcL (4.5-11.0)
[2023-11-11] MEDS ORDERED: DEXTROSE 5%-1/2NS 1,000 ML IV SCH (22:45)
[2023-11-11] MEDS ORDERED: SODIUM BICARBONATE VIAL 150 MEQ in DEXTROSE 5% IN WATER 850 ML IV SCH (23:00)
[2023-11-11] MEDS ORDERED: SODIUM BICARBONATE 50 MEQ/50 ML VIAL ONE (23:10)
[2023-11-11 23:37] LABS: Appearance,Urine Clear (Clear); Bacteria,Urine Few /hpf (0); Bilirubin,Urine Negative (Negative); Color,Urine Yellow; Culture Indicated,Urine Yes; Glucose,Urine (UA) Negative (Negative); Ketones,Urine Negative (Negative); Leukocyte Esterase,Urine Negative /uL (Negative); Nitrate,Urine Negative (Negative); Protein,Urine 30 mg/dL (Negative); Specific Gravity,Urine 1.015 (1.000-1.035); Urine Blood Trace-intact ery/mcL (Negative); Urine Granular Cast 2 /lph (0-0); Urine Hyaline Cast 2 /lph (0-2); Urine RBC 2 /hpf (0-3); Urine Squamous Epithelial Cell 4 /hpf (0-4); Urine WBC 3 /hpf (0-4); Urobilinogen,Urine Normal
[2023-11-11] MEDS ORDERED: METOPROLOL TARTRATE 25 MG TABLET PO ONE ×2 (23:57)
[2023-11-12] MEDS ORDERED: DEXTROSE 31 GM ORAL.SUSP PO PRN ×2 (00:15→00:29)
[2023-11-12] MEDS ORDERED: DEXTROSE 50% 50 ML VIAL IV PRN ×2 (00:15→00:29)
[2023-11-12] MEDS ORDERED: ACETAMINOPHEN 325 MG TABLET PO PRN (00:29)
[2023-11-12] MEDS ORDERED: BISACODYL 5 MG TABLET PO PRN (00:29)
[2023-11-12] MEDS ORDERED: LACTULOSE 20 GM/30 ML ORAL.SOL PO PRN (00:29)
[2023-11-12] MEDS ORDERED: SENNOSIDES 1 TABLET PO PRN (00:29)
[2023-11-12] MEDS ORDERED: ONDANSETRON 4 MG/2 ML VIAL IV PRN (00:29)
[2023-11-12] MEDS ORDERED: IPRATROPIUM/ALBUTEROL 3 ML AMPUL.NEB NEB ONE (01:40)
[2023-11-12] MEDS: IPRATROPIUM/ALBUTEROL 3 ML AMPUL.NEB NEB SCH ×2 (01:48→08:25)
[2023-11-12] MEDS: DEXTROSE 5%-LR 1,000 ML IV SCH ×3 (02:06→15:08)
[2023-11-12] MEDS: 0.9 % SODIUM CHLORIDE 10 ML SYRINGE IV SCH ×3 (04:57→20:48)
[2023-11-12 05:40] LABS: Basophils # (Auto) 0.05 K/mcL (0.00-0.30); Basophils % (Auto) 0.7 % (0.0-2.0); Eosinophils # (Auto) 0.17 K/mcL (0.00-0.70); Eosinophils % (Auto) 2.5 % (0.0-7.0); Hemoglobin 10.1 g/dL (13.7-17.5); Lymphocytes # (Auto) 1.12 K/mcL (1.50-4.80); Lymphocytes % (Auto) 16.6 % (15.5-49.0); Mean Cell Volume 87.4 fL (80.0-100.0); Mean Corpuscular HGB Conc 31.6 g/dL (31.0-36.0); Mean Platelet Volume 10.2 fL (8.8-12.5); Monocytes # (Auto) 1.05 K/mcL (0.10-0.90); Monocytes % (Auto) 15.6 % (1.0-12.0); Neutrophils % (Auto) 64.5 % (38.0-78.0); Platelet Count 187 K/mcL (140-440); RBC 3.66 M/mcL (4.63-6.08); Red Cell Distribution Width 14.8 % (11.5-14.5); WBC 6.7 K/mcL (4.5-11.0)
[2023-11-12 06:28] LABS: ALT/SGPT 5 U/L (<40); AST/SGOT 8 U/L (<40); Albumin 3.5 gm/dL (3.2-5.2); Albumin/Globulin Ratio 1.5 (1.0-2.3); Alkaline Phosphatase 103 U/L (39-117); Bilirubin,Total 0.4 mg/dL (0.1-1.0); Blood Urea Nitrogen 95 mg/dL (8-23); Calcium 8.8 mg/dL (8.6-10.4); Carbon Dioxide 12 mmol/L (22-30); Chloride 104 mmol/L (96-108); Globulin 2.4 gm/dL (2.2-3.7); Glomerular Filtration Rate 7; Glucose 130 mg/dL (70-105)
[2023-11-12] MEDS: INSULIN LISPRO 1 UNIT/0.01 ML UNIT SQ SCH ×4 (07:27→20:48)
[2023-11-12] MEDS ORDERED: INSULIN LISPRO 1 UNIT/0.01 ML UNIT SQ SCH (07:30)
[2023-11-12] MEDS: PANTOPRAZOLE 40 MG TABLET PO SCH (08:51)
[2023-11-12 09:02] LABS: Hemoglobin A1C 6.1 % Hgb (4.0-6.0)
[2023-11-12] MEDS ORDERED: IPRATROPIUM/ALBUTEROL 3 ML AMPUL.NEB NEB PRN (10:15)
[2023-11-12] MEDS: SODIUM BICARBONATE VIAL 150 MEQ in DEXTROSE 5% IN WATER 850 ML IV SCH ×2 (10:29→21:20)
[2023-11-12] MEDS: APIXABAN 2.5 MG TABLET PO SCH (20:46)
[2023-11-12] MEDS: METOPROLOL TARTRATE 25 MG TABLET PO SCH (20:46)
[2023-11-13] MEDS: DEXTROSE 5%-LR 1,000 ML IV SCH (03:32)
[2023-11-13] MEDS: 0.9 % SODIUM CHLORIDE 10 ML SYRINGE IV SCH ×3 (06:06→21:33)
[2023-11-13 06:10] LABS: Basophils # (Auto) 0.03 K/mcL (0.00-0.30); Basophils % (Auto) 0.4 % (0.0-2.0); Eosinophils # (Auto) 0.24 K/mcL (0.00-0.70); Eosinophils % (Auto) 3.4 % (0.0-7.0); Hematocrit 30.4 % (40.1-51.0); Hemoglobin 9.8 g/dL (13.7-17.5); Lymphocytes # (Auto) 1.04 K/mcL (1.50-4.80); Lymphocytes % (Auto) 14.9 % (15.5-49.0); Mean Cell Volume 85.9 fL (80.0-100.0); Mean Corpuscular HGB Conc 32.2 g/dL (31.0-36.0); Mean Platelet Volume 10.6 fL (8.8-12.5); Monocytes # (Auto) 1.02 K/mcL (0.10-0.90); Monocytes % (Auto) 14.6 % (1.0-12.0); Neutrophils % (Auto) 66.6 % (38.0-78.0); Platelet Count 190 K/mcL (140-440); RBC 3.54 M/mcL (4.63-6.08); Red Cell Distribution Width 14.9 % (11.5-14.5)
[2023-11-13 06:45] LABS: ALT/SGPT < 5 U/L (<40); AST/SGOT 10 U/L (<40); Albumin 3.4 gm/dL (3.2-5.2); Albumin/Globulin Ratio 1.4 (1.0-2.3); Alkaline Phosphatase 90 U/L (39-117); Bilirubin,Total 0.6 mg/dL (0.1-1.0); Blood Urea Nitrogen 80 mg/dL (8-23); Calcium 8.8 mg/dL (8.6-10.4); Carbon Dioxide 22 mmol/L (22-30); Chloride 101 mmol/L (96-108); Globulin 2.4 gm/dL (2.2-3.7); Glomerular Filtration Rate 8; Glucose 138 mg/dL (70-105)
[2023-11-13] MEDS: SODIUM BICARBONATE VIAL 150 MEQ in DEXTROSE 5% IN WATER 850 ML IV SCH (07:25)
[2023-11-13] MEDS: PANTOPRAZOLE 40 MG TABLET PO SCH (07:27)
[2023-11-13] MEDS: INSULIN LISPRO 1 UNIT/0.01 ML UNIT SQ SCH ×4 (07:30→20:20)
[2023-11-13] MEDS: APIXABAN 2.5 MG TABLET PO SCH ×2 (08:42→20:25)
[2023-11-13] MEDS: METOPROLOL TARTRATE 25 MG TABLET PO SCH ×2 (08:43→20:26)
[2023-11-13] MEDS ORDERED: FLUZONE HD QS2023-24/PF 240 MCG/0.7 ML SYRINGE IM ONE (10:00)
[2023-11-13] MEDS: ISOSORBIDE DINITRATE 10 MG TABLET PO SCH ×2 (14:41→20:25)
[2023-11-13] MEDS: hydrALAZINE 10 MG TABLET PO SCH ×2 (14:41→20:25)
[2023-11-14] MEDS: 0.9 % SODIUM CHLORIDE 10 ML SYRINGE IV SCH ×2 (05:37→14:13)
[2023-11-14 06:37] LABS: Basophils # (Auto) 0.03 K/mcL (0.00-0.30); Basophils % (Auto) 0.5 % (0.0-2.0); Eosinophils # (Auto) 0.28 K/mcL (0.00-0.70); Eosinophils % (Auto) 4.3 % (0.0-7.0); Hematocrit 28.8 % (40.1-51.0); Hemoglobin 9.3 g/dL (13.7-17.5); Lymphocytes # (Auto) 1.01 K/mcL (1.50-4.80); Lymphocytes % (Auto) 15.5 % (15.5-49.0); Mean Cell Volume 86.7 fL (80.0-100.0); Mean Corpuscular HGB Conc 32.3 g/dL (31.0-36.0); Mean Platelet Volume 10.8 fL (8.8-12.5); Monocytes # (Auto) 1.02 K/mcL (0.10-0.90); Monocytes % (Auto) 15.6 % (1.0-12.0); Neutrophils % (Auto) 63.9 % (38.0-78.0); Platelet Count 174 K/mcL (140-440); RBC 3.32 M/mcL (4.63-6.08); Red Cell Distribution Width 15.3 % (11.5-14.5); WBC 6.5 K/mcL (4.5-11.0)
[2023-11-14 07:19] LABS: ALT/SGPT 5 U/L (<40); AST/SGOT 10 U/L (<40); Albumin 3.3 gm/dL (3.2-5.2); Albumin/Globulin Ratio 1.5 (1.0-2.3); Alkaline Phosphatase 82 U/L (39-117); Bilirubin,Total 0.7 mg/dL (0.1-1.0); Blood Urea Nitrogen 69 mg/dL (8-23); Calcium 8.8 mg/dL (8.6-10.4); Carbon Dioxide 22 mmol/L (22-30); Chloride 103 mmol/L (96-108); Globulin 2.2 gm/dL (2.2-3.7); Glomerular Filtration Rate 9; Glucose 81 mg/dL (70-105)
[2023-11-14] MEDS: INSULIN LISPRO 1 UNIT/0.01 ML UNIT SQ SCH ×3 (07:31→16:43)
[2023-11-14] MEDS: PANTOPRAZOLE 40 MG TABLET PO SCH (08:28)
[2023-11-14] MEDS: APIXABAN 2.5 MG TABLET PO SCH (09:04)
[2023-11-14] MEDS: ISOSORBIDE DINITRATE 10 MG TABLET PO SCH ×2 (09:05→14:32)
[2023-11-14] MEDS: hydrALAZINE 10 MG TABLET PO SCH ×2 (09:05→14:32)
[2023-11-14] MEDS: METOPROLOL TARTRATE 25 MG TABLET PO SCH (10:06)
[2023-11-14] MEDS ORDERED: FLUZONE HD QS2023-24/PF 240 MCG/0.7 ML SYRINGE IM ONE (17:08)
[2023-11-14 17:47] VITALS: TEMP 98.5; O2SAT 98
== END 2023-11-14 17:32 | disposition home or self-care (01) | DRG 682 ==
LOC: ED 20:42 → ICU 11-12 00:20
PROVIDERS: ADMIT Internal Medicine; ATTEND Internal Medicine

== ENCOUNTER 2024-02-02 14:38 | Inpatient (IN) ==
[2024-02-02] MEDS: 0.9 % SODIUM CHLORIDE 1,000 ML IV ONE (14:58)
[2024-02-02 15:37] LABS: Basophils # (Auto) 0.02 K/mcL (0.00-0.30); Basophils % (Auto) 0.2 % (0.0-2.0); Eosinophils # (Auto) 0 K/mcL (0.00-0.70); Eosinophils % (Auto) 0 % (0.0-7.0); Hematocrit 36.2 % (40.1-51.0); Hemoglobin 10.8 g/dL (13.7-17.5); Lymphocytes # (Auto) 0.58 K/mcL (1.50-4.80); Lymphocytes % (Auto) 5.8 % (15.5-49.0); Mean Cell Volume 81.3 fL (80.0-100.0); Mean Corpuscular HGB Conc 29.8 g/dL (31.0-36.0); Mean Platelet Volume 9.6 fL (8.8-12.5); Monocytes # (Auto) 1.44 K/mcL (0.10-0.90); Monocytes % (Auto) 14.4 % (1.0-12.0); Neutrophils % (Auto) 79.4 % (38.0-78.0); Platelet Count 330 K/mcL (140-440); RBC 4.45 M/mcL (4.63-6.08); Red Cell Distribution Width 19.1 % (11.5-14.5)
[2024-02-02 16:10] LABS: Creatine Kinase 727 U/L (24-195); Thyroid Stimulating Hormone 3.31 uIU/mL (0.27-5.01)
[2024-02-02 16:19] LABS: ALT/SGPT 336 U/L (<40); AST/SGOT 198 U/L (<40); Albumin 3.8 gm/dL (3.2-5.2); Albumin/Globulin Ratio 1.4 (1.0-2.3); Alkaline Phosphatase 150 U/L (39-117); Bilirubin,Total 4.2 mg/dL (0.1-1.0); Blood Urea Nitrogen 76 mg/dL (8-23); Calcium 9.9 mg/dL (8.6-10.4); Carbon Dioxide 12 mmol/L (22-30); Chloride 102 mmol/L (96-108); Globulin 2.8 gm/dL (2.2-3.7); Glomerular Filtration Rate 15; Glucose 84 mg/dL (70-105)
[2024-02-02 18:32] LABS: Hepatitis A Antibody IgM Non-Reactive (Non-Reactive); Hepatitis B Surface Antigen Negative (Negative); Hepatitis C Virus Antibody Non-Reactive (Non-Reactive)
[2024-02-02] MEDS ORDERED: ACETAMINOPHEN 325 MG TABLET PO PRN (21:02)
[2024-02-02] MEDS ORDERED: IPRATROPIUM/ALBUTEROL 3 ML AMPUL.NEB NEB PRN (21:02)
[2024-02-02] MEDS ORDERED: traZODone HCL 50 MG TABLET PO PRN (21:02)
[2024-02-02] MEDS ORDERED: ONDANSETRON 4 MG/2 ML VIAL IV PRN (21:02)
[2024-02-02] MEDS: FUROSEMIDE 20 MG/2 ML VIAL IV SCH (22:17)
[2024-02-02] MEDS: 0.9 % SODIUM CHLORIDE 10 ML SYRINGE IV SCH (22:17)
[2024-02-02] MEDS: DOCUSATE SODIUM 100 MG CAPSULE PO SCH (22:21)
[2024-02-02] MEDS: SENNOSIDES 1 TABLET PO SCH (22:21)
[2024-02-03 06:42] LABS: Basophils # (Auto) 0.01 K/mcL (0.00-0.30); Basophils % (Auto) 0.1 % (0.0-2.0); Eosinophils # (Auto) 0.04 K/mcL (0.00-0.70); Eosinophils % (Auto) 0.4 % (0.0-7.0); Hemoglobin 10.4 g/dL (13.7-17.5); Lymphocytes % (Auto) 8.3 % (15.5-49.0); Mean Cell Volume 78.4 fL (80.0-100.0); Mean Corpuscular HGB Conc 31.5 g/dL (31.0-36.0); Mean Platelet Volume 9.9 fL (8.8-12.5); Monocytes # (Auto) 1.25 K/mcL (0.10-0.90); Neutrophils % (Auto) 78.1 % (38.0-78.0); Platelet Count 303 K/mcL (140-440); RBC 4.21 M/mcL (4.63-6.08); WBC 9.6 K/mcL (4.5-11.0)
[2024-02-03 06:59] LABS: Creatine Kinase 393 U/L (24-195)
[2024-02-03 07:02] LABS: ALT/SGPT 276 U/L (<40); AST/SGOT 149 U/L (<40); Albumin 3.5 gm/dL (3.2-5.2); Albumin/Globulin Ratio 1.4 (1.0-2.3); Alkaline Phosphatase 145 U/L (39-117); Bilirubin,Total 3.8 mg/dL (0.1-1.0); Blood Urea Nitrogen 78 mg/dL (8-23); Calcium 9.4 mg/dL (8.6-10.4); Carbon Dioxide 19 mmol/L (22-30); Chloride 105 mmol/L (96-108); Globulin 2.5 gm/dL (2.2-3.7); Glomerular Filtration Rate 17; Glucose 90 mg/dL (70-105)
[2024-02-03] MEDS: LISINOPRIL 5 MG TABLET PO SCH (08:22)
[2024-02-04 04:28] VITALS: O2SAT 100
[2024-02-04 06:28] LABS: Basophils # (Auto) 0.01 K/mcL (0.00-0.30); Basophils % (Auto) 0.1 % (0.0-2.0); Hematocrit 33.1 % (40.1-51.0); Hemoglobin 10.2 g/dL (13.7-17.5); Lymphocytes # (Auto) 0.85 K/mcL (1.50-4.80); Lymphocytes % (Auto) 8.9 % (15.5-49.0); Mean Cell Volume 78.4 fL (80.0-100.0); Mean Corpuscular HGB Conc 30.8 g/dL (31.0-36.0); Mean Platelet Volume 10.3 fL (8.8-12.5); Monocytes # (Auto) 1.24 K/mcL (0.10-0.90); Neutrophils % (Auto) 76.8 % (38.0-78.0); Platelet Count 272 K/mcL (140-440); RBC 4.22 M/mcL (4.63-6.08); Red Cell Distribution Width 19.1 % (11.5-14.5); WBC 9.6 K/mcL (4.5-11.0)
[2024-02-04 06:45] LABS: ALT/SGPT 213 U/L (<40); AST/SGOT 92 U/L (<40); Albumin 3.3 gm/dL (3.2-5.2); Albumin/Globulin Ratio 1.4 (1.0-2.3); Alkaline Phosphatase 164 U/L (39-117); Blood Urea Nitrogen 70 mg/dL (8-23); Calcium 8.9 mg/dL (8.6-10.4); Carbon Dioxide 22 mmol/L (22-30); Chloride 105 mmol/L (96-108); Creatine Kinase 130 U/L (24-195); Globulin 2.3 gm/dL (2.2-3.7); Glomerular Filtration Rate 19; Glucose 113 mg/dL (70-105)
[2024-02-04] MEDS ORDERED: IPRATROPIUM 0.06% NASAL SPRAY BOTTLE 30ML NAS PRN (10:48)
[2024-02-04] MEDS: POTASSIUM CHLORIDE 10 MEQ TABLET PO SCH (18:05)
[2024-02-04] MEDS: APIXABAN 2.5 MG TABLET PO SCH (20:53)
[2024-02-04] MEDS: METOPROLOL SUCCINATE 50 MG TAB.XL.24H PO SCH (20:54)
[2024-02-05 06:22] LABS: Basophils # (Auto) 0.03 K/mcL (0.00-0.30); Basophils % (Auto) 0.3 % (0.0-2.0); Eosinophils # (Auto) 0.23 K/mcL (0.00-0.70); Eosinophils % (Auto) 2.2 % (0.0-7.0); Hematocrit 33.7 % (40.1-51.0); Hemoglobin 10.5 g/dL (13.7-17.5); Lymphocytes # (Auto) 0.86 K/mcL (1.50-4.80); Lymphocytes % (Auto) 8.2 % (15.5-49.0); Mean Cell Volume 77.6 fL (80.0-100.0); Mean Corpuscular HGB Conc 31.2 g/dL (31.0-36.0); Mean Platelet Volume 9.8 fL (8.8-12.5); Monocytes # (Auto) 1.42 K/mcL (0.10-0.90); Monocytes % (Auto) 13.5 % (1.0-12.0); Neutrophils % (Auto) 75.6 % (38.0-78.0); Platelet Count 271 K/mcL (140-440); RBC 4.34 M/mcL (4.63-6.08); Red Cell Distribution Width 19.2 % (11.5-14.5); WBC 10.5 K/mcL (4.5-11.0)
[2024-02-05 06:34] LABS: ALT/SGPT 166 U/L (<40); AST/SGOT 58 U/L (<40); Albumin 3.2 gm/dL (3.2-5.2); Albumin/Globulin Ratio 1.3 (1.0-2.3); Alkaline Phosphatase 164 U/L (39-117); Blood Urea Nitrogen 63 mg/dL (8-23); Calcium 8.7 mg/dL (8.6-10.4); Carbon Dioxide 24 mmol/L (22-30); Chloride 102 mmol/L (96-108); Creatine Kinase 57 U/L (24-195); Globulin 2.5 gm/dL (2.2-3.7); Glomerular Filtration Rate 22; Glucose 100 mg/dL (70-105)
[2024-02-05] MEDS: PANTOPRAZOLE 40 MG TABLET PO SCH (08:41)
[2024-02-05] MEDS: ATORVASTATIN 40 MG TABLET PO SCH (08:41)
[2024-02-05 11:41] VITALS: TEMP 97.5
== END 2024-02-05 13:15 | DRG 291 ==
LOC: ED 14:38 → MEDSUR 20:55
PROVIDERS: ADMIT Internal Medicine; ATTEND Internal Medicine